=== PATIENT | female | born 2000 | race Caucasian/White ===

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

== ENCOUNTER 2025-02-22 04:27 | Emergency (ER) | payer MEDICAID ==
[~2025-02-22] VITALS: Ht 162.6 cm; Wt 50.0 kg
[2025-02-22 04:32] VITALS: O2SAT 100
[2025-02-22] MEDS: ONDANSETRON HCL 4MG TABLET PO ONE (05:11)
[2025-02-22] MEDS: ACETAMINOPHEN 325MG TABLET PO ONE (05:11)
[2025-02-22 05:27] LABS: BASOPHILS % 0.5 % (0.0-2.0); EOSINOPHILS % 2.1 % (0.0-5.0); HEMATOCRIT. 39.5 % (36.0-48.0); HEMOGLOBIN. 13.4 g/dL (12.0-16.0); LYMPHOCYTES % 9.8 % (20.0-50.0); MEAN PLATELET VOLUME 7.0 fl (7.4-10.4); MONOCYTES % 7.2 % (2.0-8.0); NEUTROPHILS % 80.4 % (40.0-76.0); PLATELET 409 x1000/uL (130-400); RED BLOOD CELL COUNT 4.01 mill/uL (4.2-5.4); RED CELL DISTRIBUTION WIDTH 20.4 % (11.6-14.6)
[2025-02-22] MEDS: TRAMADOL 50MG TABLET PO ONE (05:41)
[2025-02-22 05:44] LABS: CREATININE 0.7 mg/dL (0.6-1.0); UREA NITROGEN BLOOD 10 mg/dL (9-23)
[2025-02-22 05:46] LABS: ASPARTATE AMINOTRANSFERASE 40 IU/L (<34); BILIRUBIN DIRECT 0.2 mg/dL (<=3.0); BILIRUBIN TOTAL 0.7 mg/dL (0.1-1.0); PROTEIN TOTAL 7.9 g/dL (6.0-8.3)
[2025-02-22 06:06] LABS: HCG SCREEN NEGATIVE
[2025-02-22 08:07] LABS: CLARITY URINE CLOUDY (CLEAR); COLOR URINE DARK YELLOW (YELLOW); GLUCOSE URINE NEGATIVE (NEGATIVE); KETONES URINE 4+ (NEGATIVE); LEUKOCYTE ESTERASE URINE 2+ (NEGATIVE); NITRITE URINE NEGATIVE (NEGATIVE); OCCULT BLOOD URINE 2+ (NEGATIVE); PH URINE 6.0 (4.5-8.0); PROTEIN URINE 1+ (NEGATIVE); SPECIFIC GRAVITY URINE 1.024 (1.005-1.030); UROBILINOGEN URINE 1.0 E.U./dL (0.2-1.0)
[2025-02-22 08:22] LABS: BACTERIA URINE TRACE; SQUAMOUS EPITHELIAL CELL URINE 2+ /lpf (RARE/1+); YEAST URINE NONE SEEN
[2025-02-22] MEDS ORDERED: NITR-87 MT (09:46)
[2025-02-22 10:00] VITALS: BP 134/84; PULSE 77; RESP 18; TEMP 36.9; O2SAT 100
== END 2025-02-22 10:01 | disposition home or self-care (01) ==
LOC: ER 04:27
DX: R53.81 Other malaise (principal); R82.90 Unspecified abnormal findings in urine; F12.90 Cannabis use, unspecified, uncomplicated
CPT/HCPCS: 99285; 71045; 80076; 80048; 81003; 84703; 83690; 85025; 87086; 87077; 36415; 93005; Q0162